=== PATIENT | male | born 1950 | race Caucasian/White ===

== ENCOUNTER → 2016-11-10 | Outpatient (CLI) | payer OTHER ==
[2010-07-17 14:50] VITALS: BP 142/98
[2016-11-10 09:16] LABS: HEMATOCRIT 44.8 % (42.0-52.0); HEMOGLOBIN 15.5 g/dL (14.0-18.0); MEAN CORPUSCULAR HEMOGLOBIN 32.2 PG (27-31); MEAN CORPUSCULAR HGB CONC 34.6 g/dL (33-37); MEAN CORPUSCULAR VOLUME 92.9 FL (80-90); MEAN PLATELET VOLUME 9.2 FL (7.4-12.2); RED BLOOD COUNT 4.82 10^6/uL (4.70-6.10)
[2016-11-10 10:47] LABS: BLOOD UREA NITROGEN 24 mg/dL (7-22); CALCIUM 9.2 mg/dL (8.7-10.7); CHOL/HDL RATIO 4.88 RATIO (0-4.0); EST GLOMERULAR FILTRATION > 60 (>60 ml/min/1.73m(2)); HDL CHOLESTEROL 35 mg/dL (40-150); SERUM ALBUMIN 4.4 g/dL (3.5-4.8); SERUM CHOLESTEROL 171 mg/dL (120-200)
== END ==
LOC: LAB 09:01
PROVIDERS: ATTEND Family Medicine
DX: I10 Essential (primary) hypertension (principal); E03.9 Hypothyroidism, unspecified
CPT/HCPCS: 36415; 80053; 80061; 84443; 85027

== ENCOUNTER → 2016-11-23 | Outpatient (CLI) | payer OTHER ==
[2010-07-17 14:50] VITALS: BP 142/98
== END ==
LOC: MMPC 09:15
PROVIDERS: ATTEND Family Medicine
DX: E11.9 Type 2 diabetes mellitus without complications (principal); I10 Essential (primary) hypertension; E78.5 Hyperlipidemia, unspecified; Z71.3 Dietary counseling and surveillance
CPT/HCPCS: G0108

== ENCOUNTER → 2016-12-07 | Outpatient (CLI) | payer OTHER ==
[2010-07-17 14:50] VITALS: BP 142/98
== END ==
LOC: MMPC 08:33
PROVIDERS: ATTEND Family Medicine
DX: E11.9 Type 2 diabetes mellitus without complications (principal); I10 Essential (primary) hypertension; E78.5 Hyperlipidemia, unspecified
CPT/HCPCS: G0108

== ENCOUNTER → 2017-01-04 | Outpatient (CLI) | payer OTHER ==
[2010-07-17 14:50] VITALS: BP 142/98
== END ==
LOC: MMPC 08:30
PROVIDERS: ATTEND Family Medicine
DX: E11.9 Type 2 diabetes mellitus without complications (principal); I10 Essential (primary) hypertension; E78.5 Hyperlipidemia, unspecified; Z71.3 Dietary counseling and surveillance
CPT/HCPCS: G0108

== ENCOUNTER → 2017-02-04 | Outpatient (CLI) | payer OTHER ==
[2010-07-17 14:50] VITALS: BP 142/98
== END ==
LOC: LAB 07:39
PROVIDERS: ATTEND Family Medicine
DX: E03.9 Hypothyroidism, unspecified (principal)
CPT/HCPCS: 36415; 84443